=== PATIENT | female | born 1990 | race Caucasian/White ===

== ENCOUNTER 2018-10-30 09:11 | Emergency (ER) | payer OTHER ==
[~2018-10-30] VITALS: Ht 152.4 cm; Wt 70.3 kg
--- OUTSIDE RECORDS SUMMARY | 2018-10-30 09:13 | XMS REPORT | Encounter Summary ---
Author Organization Unknown Address [address] [place] [address] Phone [phone] Reason for Visit Screening - Lab Instructions 1. Screening for disorder varicella-zoster igg Ab screen, serum hepatitis B surface Ab, quantitative, serum Discussion Note: None recorded. Patient educational handouts: No information available. Plan of Care Reminders Provider Appointments None recorded. Lab Varicella-zoster Igg Ab Screen, Serum 07/11/2016 [facility] Hepatitis B Surface Ab, Quantitative, Serum 07/11/2016 [facility] Referral None recorded. Procedures None recorded. Surgeries None recorded. Imaging None recorded. Medications Name Start Date Keflex 500 mg capsule Take 1 capsule every 12 hours by oral route for 10 days. Medications Administered None recorded. Vitals None recorded. Lab Results None recorded. Allergies Name Reaction Severity Onset Flagyl Vomiting Problems Name Status Onset Date Source Viral Syndrome Active Encounter Acute Pharyngitis Active Encounter Procedures Date Name Performed by Anesth Surgery of Abdomen Information not available Vaccine List None recorded. Social History Smoking Status Never Smoker Past Encounters 07/11/2016 Screening for Disorder Vernell Patricio, SENIOR TELECOMMUNICATIONS SPECIALIST: [address] [address], Ph. History of Present Illness Lab Request Reported By: Patient HPI: Lab Request (normal) no symptoms. Prior History of: Chicken Pox Review of Systems:ROS as noted in the HPI Review of Systems Basic Reported By: Patient Physical Exam Adult Basic Constitutional: General Appearance: healthy-appearing, well-nourished, well-developed. Level of Distress: NAD. Ambulation: ambulating normally
--- OUTSIDE RECORDS SUMMARY | 2018-10-30 09:13 | XMS REPORT ---
Author Author [facility] Address Unknown Phone Unavailable Care Team Providers Care Accounts Payable Coordinator Name Role Phone Unavailable Unavailable Payers Payer Name Policy Type Policy Number Effective Date Expiration Date Problems This patient has no known problems. Allergies, Adverse Reactions, Alerts Allergy Name Allergy Type Status Severity Reaction(s) Onset Date Inactive Date Treating Clinician Comments prednisone DA Active U 2018-09-06 00:00:00 Metronidazole HCl DA Active U 2013-03-02 00:00:00 metronidazole DA Active U 2013-03-02 00:00:00 Medications This patient has no known medications.
--- OUTSIDE RECORDS SUMMARY | 2018-10-30 09:13 | XMS REPORT | Encounter Summary ---
Author Organization Unknown Address [address] [place] [address] Phone [phone] Reason for Visit Medical Complaint Instructions 1. Acute bronchitis bronchitis: care instructions ProAir HFA 90 mcg/actuation aerosol inhaler Tessalon Perles 100 mg capsule azithromycin 250 mg tablet 2. Costal chondritis costochondritis: care instructions ibuprofen 600 mg tablet 3. Elevated blood pressure elevated blood pressure: care instructions 4. Body mass index 30+ - obesity body mass index: care instructions 5. Influenza-like symptoms mononucleosis, heterophile Ab, blood rapid flu (A+B) Discussion Note Follow up as needed for worsening of condition Plan of Care Reminders Provider Appointments None recorded. Lab Mononucleosis, Heterophile Ab, Blood 05/27/2018 [facility] Rapid Flu (A+B) 05/27/2018 [facility] Referral None recorded. Procedures None recorded. Surgeries None recorded. Imaging None recorded. Medications Name Start Date azithromycin 250 mg tablet TAKE 2 TABLETS (500 MG) BY ORAL ROUTE ONCE DAILY FOR 1 DAY THEN 1 TABLET (250 MG) BY ORAL ROUTE ONCE DAILY FOR 4 DAYS If your symptoms continue to worsen over the next 24 hours start the Zpak as directed buspirone 15 mg tablet Take 1 tablet twice a day by oral route. ibuprofen 600 mg tablet Take 1 tablet 3 times a day by oral route as needed for 7 days. per pt Propranolol is only taken as needed. Latuda 20 mg tablet Take 1 tablet every day by oral route. ProAir HFA 90 mcg/actuation aerosol inhaler Inhale 2 puffs every 4 hours by inhalation route as directed for 14 days. propranolol 20 mg tablet Take 1 tablet 3 times a day by oral route. Tessalon Perles 100 mg capsule Take 1 capsule 3 times a day by oral route as needed for 14 days. Vraylar 1.5 mg capsule Take 1 capsule every day by oral route. Medications Administered None recorded. Vitals Height Weight BMI Blood Pressure 5 ft 169 lbs 33 kg/m2 120/82 mm[Hg] Lab Results Date Name Specimen Result Interpretation Description Value Range Status Address Rapid Flu (A+B) Influenza a negative [facility]: [facility] Influenza B negative [facility]: [facility] Mononucleosis, Heterophile Ab, Blood Result negative [facility]: [facility] Allergies Code Code System Name Reaction Severity Status Onset 20280501 RxNorm Flagyl Vomiting Active 8640 RxNorm Prednisone Active Problems Name Status Onset Date Source Anxiety Active 05/27/2018 Exercise-induced Asthma Active 05/27/2018 Ulcerative Colitis Active 05/27/2018 Procedures Date Name Performed by Anesth Surgery of Abdomen Information not available Vaccine List Vaccine Type Tdap 11/26/2015 Social History Smoking Status Never Smoker Past Encounters 05/27/2018 Acute Bronchitis; Costal Chondritis; Elevated Blood Pressure; Body Mass Index 30+ - Obesity; Influenza-like Symptoms Pablo Rousseau, SLOT FLOORPERSON-C: [address] [place] [address], Ph. History of Present Illness Iwjin-Knhghgrtln-Oouzjut Reported By: Patient HPI: Location: chest. Quality: dry cough, wheezy cough. Duration: 7days. Severity: moderate. Onset/Timing: gradual. Context: no foreign travel, non-smoker, sick contact, asthma. Modifying factors: OTC medication. Associated Symptoms: no vomiting, no rash, no nausea, wheezing, fatigue, sweats, morning cough, diarrhea, fever, muscle aches, headache Review of Systems Basic Reported By: Patient Constitutional: Constitutional: no fever Eyes: Eyes: no eye complaints Aecx-Gsei-Dpwdb-Throat: Ears: no ear complaints. Mouth/Throat: sore throat Cardiovascular: Cardiovascular: no chest pain Respiratory: Respiratory: no shortness of breath, cough Genitourinary: Genitourinary: no urinary complaints Musculoskeletal: Musculoskeletal: no muscle aches, no muscle weakness Skin: Skin: no abnormal / changing mole, no rashes Physical Exam Adult Basic, Adult Female Complete Reported By: Patient Constitutional: General Appearance: healthy-appearing, well-nourished, well-developed. Level of Distress: NAD. Ambulation: ambulating normally Eyes: Lens: clear. Sclerae: non-icteric Afi-Uurz-Eaouo-Throat: Ears: no lesions on external ear, no outer ear tenderness, EACs clear, TMs clear. Nose: no lesions on external nose, nares patent, no septal deviation, nasal passages clear, no sinus tenderness, no nasal discharge. Lips, Teeth, and Gums: no mouth or lip ulcers, no bleeding gums, normal dentition. Oropharynx: moist mucous membranes, no exudates, erythema, tonsils absent Neck: Neck: FROM. Lymph Nodes: no cervical LAD, no supraclavicular LAD Lungs: Respiratory effort: no dyspnea, no tachypnea, no use of accessory muscles, no intercostal retractions. Auscultation: breath sounds normal Cardiovascular: Heart Auscultation: RRR, no murmurs Musculoskeletal:: Motor Strength and Tone: normal motor strength, normal tone. Joints, Bones, and Muscles: normal movement of all extremities. Extremities: no edema Neurologic: Gait and Station: normal gait, normal station Skin: Inspection and palpation: no rash Abdomen: Inspection and Palpation: soft, non-distended, no tenderness, no guarding, no CVA tenderness
--- OUTSIDE RECORDS SUMMARY | 2018-10-30 09:13 | XMS REPORT | Continuity of Care Document ---
Author Author [facility] Address Unknown Phone Unavailable Problems Problem Status Onset Date Classification Date Reported Comments Source Acute bronchitis 05/27/2018 Diagnosis 05/27/2018 [facility] Costal chondritis 05/27/2018 Diagnosis 05/27/2018 [facility] Influenza-like symptoms 05/27/2018 Diagnosis 05/27/2018 [facility] Body mass index 30+ - obesity 05/27/2018 Diagnosis 05/27/2018 [facility] Elevated blood pressure 05/27/2018 Diagnosis 05/27/2018 [facility] Anxiety 05/27/2018 Problem 05/27/2018 [facility] Exercise-induced Asthma 05/27/2018 Problem 05/27/2018 [facility] Ulcerative Colitis 05/27/2018 Problem 05/27/2018 [facility] VAGINAL BLEEDING Active 12/27/2017 [facility] K51.90 - "ULCERATIVE COLITIS, UNSPECIFIE Active 05/08/2017 [facility] Outpatient Imaging [facility] Screening for disorder 07/11/2016 Diagnosis 07/11/2016 [facility] Viral Syndrome Problem 07/11/2016 [facility] Acute Pharyngitis Problem 07/11/2016 [facility] Medications Medication Details Route Status Patient Instructions Ordering Provider Order Date Source Cephalexin 500 MG Oral Capsule [Keflex] Keflex 500 mg capsule Take 1 capsule every 12 hours by oral route for 10 days. Active [facility] Azithromycin 250 MG Oral Tablet azithromycin 250 mg tablet TAKE 2 TABLETS (500 MG) BY ORAL ROUTE ONCE DAILY FOR 1 DAY THEN 1 TABLET (250 MG) BY ORAL ROUTE ONCE DAILY FOR 4 DAYS If your symptoms continue to worsen over the next 24 hours start the Zpak as directed Active [facility] buspirone hydrochloride 15 MG Oral Tablet buspirone 15 mg tablet Take 1 tablet twice a day by oral route. Active [facility] Ibuprofen 600 MG Oral Tablet ibuprofen 600 mg tablet Take 1 tablet 3 times a day by oral route as needed for 7 days. per pt Propranolol is only taken as needed. Active [facility] Lurasidone Hydrochloride 20 MG Oral Tablet [Latuda] Latuda 20 mg tablet Take 1 tablet every day by oral route. Active [facility] 200 ACTUAT Albuterol 0.09 MG/ACTUAT Metered Dose Inhaler [ProAir] ProAir HFA 90 mcg/actuation aerosol inhaler Inhale 2 puffs every 4 hours by inhalation route as directed for 14 days. Active [facility] Propranolol Hydrochloride 20 MG Oral Tablet propranolol 20 mg tablet Take 1 tablet 3 times a day by oral route. Active [facility] benzonatate 100 MG Oral Capsule [Tessalon Perles] Tessalon Perles 100 mg capsule Take 1 capsule 3 times a day by oral route as needed for 14 days. Active [facility] cariprazine 1.5 MG Oral Capsule [Vraylar] Vraylar 1.5 mg capsule Take 1 capsule every day by oral route. Active [facility] Allergies, Adverse Reactions, Alerts Substance Category Reaction Severity Reaction type Status Date Reported Comments Source Flagyl Vomiting Allergy to substance 10/24/2014 [facility] Prednisone Allergy to substance 05/27/2018 [facility] Immunizations Immunization Date Given Site Status Last Updated Comments Source Tdap 11/26/2015 completed [facility] Results Order Name Results Value Reference Range Date Interpretation Comments Source Influenza A negative 05/27/2018 [facility] Influenza B negative 05/27/2018 [facility] RESULT negative 05/27/2018 [facility] Pelvis w Transvag and Pelvis Doppler US Pelvis w Transvag and Pelvis Doppler US Clinical Indication: - vaginal bleeding. Comparison: None. TECHNIQUE: Technique: Grayscale, color and Doppler transabdominal and transvaginal imaging of the pelvis was performed with standard technique. FINDINGS: TRANSABDOMINAL PELVIC ULTRASOUND: UTERUS: Transabdominal pelvic ultrasound evaluation of the uterus shows an retroverted uterus measuring 6.7 x 3.1 x 4.1 cm. Uterine parenchyma is not well assessed on the transabdominal pelvic ultrasound. OVARIES: Ovaries are not well seen on the transabdominal portion of the exam, related to bowel gas in the pelvis. IMPRESSION: Limited assessment of the uterine parenchyma and ovaries on the transabdominal pelvic ultrasound, related to bowel gas in the pelvis. This necessitated a pelvic transvaginal ultrasound. Recommend correlation with the transvaginal pelvic ultrasound report. TRANSVAGINAL PELVIC ULTRASOUND: UTERUS: Normal uterine contour and morphology. There is normal parenchymal echotexture. Trace amount of fluid is seen in the fundal endometrium. Normal thickness measuring 4 mm. OVARIES: RIGHT: 2.3 x 2.2 x 2.0 cm. LEFT: 3.5 x 2.0 x 2.1 cm. Normal ovarian contour and morphology. No adnexal masses. The limited Doppler images show normal bilateral ovarian blood flow. OTHER FINDINGS: No free fluid in the pelvic cul-de-sac. IMPRESSION: Appearance of the retroverted uterus, and ovaries is within normal limits. SL: [id number] 12/27/2017 - - Read by: Sonia Celestin MD Dictated Date/time: 12/27/17 13:54 Electronically Signed by: Sonia Celestin MD 12/27/17 14:02 FINAL REPORT [facility] Chest 2 views DX Chest 2 views DX Clinical Indication: K51.90 Ulcerative colitis, unspecified, without complications - K51.90 Ulcerative colitis, unspecified, without complications Comparison: 01/18/2007 FINDINGS: The PA and lateral chest radiographs shows normal lung volumes without interstitial or airspace opacities, pleural effusions or pneumothorax. The heart size and pulmonary vasculature are normal. The trachea is midline. There are no clinically significant osseous abnormalities noted. IMPRESSION: No chest radiographic evidence of acute cardiopulmonary disease. SL: [id number] 05/08/2017 - - Read by: Ramsey Borrego MD Dictated Date/time: 05/08/17 11:30 Electronically Signed by: Ramsey Borrego MD 05/08/17 11:30 FINAL REPORT [facility] Outpatient Imaging [facility] Vital Signs Vital Sign Value Date Comments Source Diastolic (mm Hg) 82 05/27/2018 [facility] Height 60 05/27/2018 [facility] Systolic (mm Hg) 120 05/27/2018 [facility] Weight 169 05/27/2018 [facility] Encounters Location Location Details Encounter Type Encounter Number Reason For Visit Attending Provider ADM Date DC Date Status Source [place] - [facility] - [id number] Vernell Patricio, HEALTH EDUCATION DIRECTOR: [address] [address], Ph. [id number] Vernell Patricio 07/11/2016 [facility] Outpatient Imaging [facility] Out[facility] Diag Services [id number] Yousef Usta 05/08/2017 05/09/2017 [facility] Outpatient Imaging [facility] - [facility] - [id number] Pablo Rousseau, HEALTH EDUCATION DIRECTOR-C: [address] [place] [address], Ph. [id number] Pablo Rousseau 05/27/2018 [facility] Procedures Procedure Code Date Perfomer Comments Source Anesth Surgery of Abdomen [facility] Anesth Surgery of Abdomen [address] [facility]
--- OUTSIDE RECORDS SUMMARY | 2018-10-30 09:13 | XMS REPORT | Summary of Care ---
Author Author [facility] Outpatient Imaging [facility] Outpatient Imaging [facility] Address Unknown Phone Unavailable Encounter HQ Encntr_alias(FIN) [id number] Date(s): 05/08/17 - 05/08/17 [facility] Outpatient Imaging [facility] [address] [place], [place] [address]- Discharge Disposition: Home or Self Care Attending Physician: Tyson Li MD Vital Signs No data available for this section Problem List No data available for this section Allergies, Adverse Reactions, Alerts No data available for this section Medications No data available for this section Results No data available for this section Immunizations No data available for this section Procedures No data available for this section Social History No data available for this section Assessment and Plan No data available for this section
[2018-10-30 10:26] LABS: BILIRUBIN,URINE NEGATIVE (NEGATIVE); CLARITY,URINE CLEAR (CLEAR); COLOR,URINE YELLOW (YELLOW); KETONES,URINE NEGATIVE (NEGATIVE); LEUKOCYTE ESTERASE ,URINE TRACE (NEGATIVE); NITRITE,URINE NEGATIVE (NEGATIVE); PROTEIN,URINE DIPSTICK NEGATIVE (NEGATIVE); URINE UROBILINOGEN 0.2 mg/dL (0.2 - 1)
[2018-10-30 10:40] LABS: BACTERIA,URINE FEW /HPF; EPITHELIAL CELLS,URINE FEW /LPF; TRANSITIONAL EPI CELLS,URINE RARE; WBC,URINE (MAN) 0-5 /HPF (0-5)
[2018-10-30 10:56] LABS: BASOPHILS % 0.6 % (0.0-1.0); EOSINOPHILS % 0.2 % (0.0-6.0); HEMATOCRIT 40.6 % (34.2-44.1); HEMOGLOBIN 13.9 g/dL (12.0-16.0); LYMPHOCYTES # (AUTO) 1.8 (1.0-3.2); MEAN CORPUSCULAR HEMOGLOBIN 30.3 pg (28-32); MEAN CORPUSCULAR HGB CONC 34.2 g/dL (31-35); MEAN CORPUSCULAR VOLUME 88.5 fL (81-99); MONOCYTES # (AUTO) 0.3 (0.2-0.8); MONOCYTES % 5.3 % (4.4-11.3); NEUTROPHILS % 64.7 % (38.7-80.0); PLATELET COUNT 247 x10e3/uL (140-360); RED BLOOD COUNT 4.59 x10e6/uL (3.6-5.1); RED CELL DISTRIBUTION WIDTH 12.4 % (11.7-14.4)
[2018-10-30 11:15] LABS: CREATINE KINASE 71 IU/L (29-168)
--- NOTE | 2018-10-30 11:37 | Diagnostic Imaging Report ---
EXAM: XR CHEST 2 VIEWS DATE: 10/30/2018 9:24 AM INDICATION: Pain COMPARISON: None FINDINGS: Lines and Tubes: None Heart and Mediastinum: No acute cardiomediastinal findings. Lungs and Pleura: No significant pleural effusion, pneumothorax, or focal consolidation. Probable tiny granuloma right midlung. Bones and Soft Tissues: No acute findings. IMPRESSION: 1. No acute cardiopulmonary findings. Signed by: Dr. Abimael Landers MD on 10/30/2018 11:34 AM
[2018-10-30 11:38] LABS: ALANINE AMINOTRANSFERASE 10 IU/L (0-55); ALBUMIN 4.3 g/dL (3.5-5.0); ALBUMIN/GLOBULIN RATIO 1.1 (0.8-2.0); ALKALINE PHOSPHATASE 83 IU/L (40-150); ANION GAP 14.9 mmol/L (8-16); BLOOD UREA NITROGEN 8 mg/dL (7-26); BUN/CREATININE RATIO 10 (6-25); CARBON DIOXIDE 23 mmol/L (22-29); CHLORIDE 107 mmol/L (98-107); CREATININE, SERUM 0.77 mg/dL (0.57-1.11); EST GLOMERULAR FILTRATION RATE > 60 ML/MIN (60-); GLUCOSE 87 mg/dL (74-118); POTASSIUM 3.9 mmol/L (3.5-5.1); SODIUM 141 mmol/L (136-145)
[2018-10-30 11:44] LABS: HCG,QUANTITATIVE < 1.20 mIU/mL (0-10)
--- NOTE | 2018-11-07 15:21 | Consultation ---
DATE OF CONSULTATION: October 30, 2018 CARDIOLOGY CONSULTATION REASON FOR CONSULTATION: Chest pain. HISTORY OF PRESENT ILLNESS: This is a 27-year-old woman with a history of ulcerative colitis, who presented to the emergency department with chest discomfort. The patient presented to an outside facility, and stated that she had an abnormal electrocardiogram with T-wave inversions in the inferior leads and transported here to our emergency department. She has no past cardiovascular history. Her chest pain is exacerbated by movement and deep inspirations. No exertional symptoms. No shortness of breath. No diaphoresis or nausea or vomiting. Upon arrival here, the patient's cardiac enzymes were within normal limits. PAST MEDICAL HISTORY: Ulcerative colitis. PAST SURGICAL HISTORY: None reported. FAMILY HISTORY: No premature coronary artery disease or sudden cardiac . Mother has atrial fibrillation. ALLERGIES: METRONIDAZOLE, PREDNISONE. MEDICATIONS: See medication reconciliation form. REVIEW OF SYSTEMS: A 12-point review of systems was conducted, and is negative other than listed in the HPI. PHYSICAL EXAMINATION VITALS: Temperature is 98.4, heart rate is 77, respirations are 18, blood pressure is 138/69, oxygen saturation is 100% on room air. GENERAL: A well-appearing, well-built woman seated in no apparent distress. Alert and oriented times 3. HEENT: Head is normocephalic and atraumatic. Eyes: Extraocular movements are intact. No anicteric sclerae. No JVD. No bruits. CARDIOVASCULAR: Regular rate and rhythm. Normal S1 and S2. LUNGS: Clear to auscultation bilaterally. No wheezing. No rales. ABDOMEN: Soft, nontender and nondistended. Normoactive bowel sounds. EXTREMITIES: No clubbing, cyanosis or edema. VASCULAR: Two plus pulses. SKIN: Warm, dry and intact. NEUROLOGIC: No focal deficits noted. Cranial nerves grossly intact. PSYCHIATRIC: Normal mood and affect. All laboratory data reviewed. Negative cardiac enzymes. D-dimer within normal limits. A 12-lead electrocardiogram showed normal sinus rhythm with no S/T or T-wave abnormalities. Chest x-ray shows no acute intrathoracic abnormality. IMPRESSION 1. Precordial pain. 2. Ulcerative colitis. 3. Anxiety. RECOMMENDATIONS: There is no evidence of acute coronary syndrome. She is ruled out for acute myocardial infarction with negative cardiac enzymes. She has no risk factors for coronary artery disease. The patient's symptoms are likely related to either anxiety, costochondritis or her ulcerative colitis. Consider outpatient followup for further evaluation. Thank you for the consultation. Job#: [id number] [place]
== END 2018-10-30 12:19 | disposition home or self-care (01) ==
LOC: ER 09:11
DX: R06.09 Other forms of dyspnea (principal); R07.89 Other chest pain; K51.90 Ulcerative colitis, unspecified, without complications
CPT/HCPCS: 36415; 71046; 80053; 81001; 82550; 82553; 84484; 84702; 85025; 85379; 93005; 99283